=== PATIENT | male | born 1980 ===

== ENCOUNTER 2016-11-29 10:54 | Emergency (ER) | payer OTHER ==
[2016-11-29 11:02] VITALS: BP 139/80; TEMP 98
[2016-11-29 11:03] VITALS: BMI 22.4
[2016-11-29 11:31] VITALS: PULSE 100; RESP 20; O2SAT 98
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
== END 2016-11-29 13:27 | disposition home or self-care (01) ==
LOC: H.ER 10:54
DX: S93.402A Sprain of unspecified ligament of left ankle, initial encounter (principal); W22.8XXA Striking against or struck by other objects, initial encounter; Y92.89 Other specified places as the place of occurrence of the external cause

== ENCOUNTER 2017-03-26 10:46 | Emergency (ER) | payer OTHER ==
[2017-03-26 10:46] VITALS: BMI 22.4
[2017-03-26 10:57] VITALS: BP 106/59; TEMP 98.4
[2017-03-26 11:28] VITALS: PULSE 86; RESP 18; O2SAT 100
--- NOTE | 2017-03-26 12:28 | ED PDOC ---
Upper Extremity Pain/Injury Time Seen by Provider: 03/26/17 12:05 Chief Complaint (Nursing): Upper Extremity Problem/Injury Chief Complaint (Provider): Neck Pain History Per: Patient History/Exam Limitations: no limitations Onset/Duration Of Symptoms: Days (x 1 week) Current Symptoms Are (Timing): Still Present Exacerbating Factor(s): Movement Additional Complaint(s): Antonio is a 37 y/o male presenting to the ED complaining of neck pain for the past week. Denies any associated injury, heavy lifting, or trauma. Took Tylenol with no relief, last dose was last week. Pain worsens with movement. Patient denies having similar pain in the past. Denies headache, changes in vision, arm pain, chest pain, and shortness of breath. PMD: None Past Medical History Reviewed: Historical Data, Nursing Documentation, Vital Signs Vital Signs: Last Vital Signs Temp 98.4 F 03/26/17 11:26 Pulse 86 03/26/17 11:26 Resp 18 03/26/17 11:26 BP 106/59 L 03/26/17 11:26 Pulse Ox 100 03/26/17 11:26 - Medical History PMH: Back Problems - Surgical History Surgical History: No Surg Hx - Family History Family History: States: No Known Family Hx - Living Arrangements Living Arrangements: With Family - Social History Current smoker - smoking cessation education provided: No Alcohol: None Drugs: Denies - Home Medications Home Medications: Ambulatory Orders Medication Instructions Recorded Chlorzoxazone [Lorzone] 750 mg PO BID #10 tablet 08/27/16 Ibuprofen [Motrin Tab] 800 mg PO Q6H PRN #20 tab 08/27/16 Chlorzoxazone [Lorzone] 750 mg PO TID PRN #15 tablet 08/30/16 Cyclobenzaprine [Cyclobenzaprine 10 mg PO TID PRN #20 tab 11/29/16 HCl] Ibuprofen [Motrin Tab] 800 mg PO Q8 PRN #20 tab 11/29/16 Cyclobenzaprine [Cyclobenzaprine 10 mg PO TID PRN #20 tab 03/26/17 HCl] Naproxen [Naprosyn] 500 mg PO BID #20 tab 03/26/17 - Allergies Allergies/Adverse Reactions: Allergies Allergy/AdvReac Type Severity Reaction Status Date / Time No Known Allergies Allergy Verified 08/27/16 20:22 Review of Systems ROS Statement: Except As Marked, All Systems Reviewed And Found Negative Constitutional: Negative for: Fever Eyes: Negative for: Vision Change Cardiovascular: Negative for: Chest Pain Respiratory: Negative for: Shortness of Breath Musculoskeletal: Positive for: Neck Pain (x 1 week, denies trauma). Negative for: Arm Pain Neurological: Negative for: Headache Physical Exam - Reviewed Nursing Documentation Reviewed: Yes Vital Signs Reviewed: Yes - Physical Exam Appears: Positive for: Well, Non-toxic, No Acute Distress Head Exam: Positive for: ATRAUMATIC, NORMAL INSPECTION, NORMOCEPHALIC Skin: Positive for: Normal Color, Warm, Dry. Negative for: Rash Eye Exam: Positive for: Normal appearance Neck: Positive for: Pain On Movement Of Neck (Mild tenderness along the midline c-spine with no step off, Mild tenderness to the bilateral paraspinal regions) Cardiovascular/Chest: Positive for: Regular Rate, Rhythm Respiratory: Positive for: Normal Breath Sounds Extremity: Positive for: Normal ROM. Negative for: Deformity Neurologic/Psych: Positive for: Alert, Oriented. Negative for: Motor/Sensory Deficits - ECG O2 Sat by Pulse Oximetry: 100 (RA) Pulse Ox Interpretation: Normal - Other Rad cervical spine x-ray X-Ray: Interpreted by Me, Viewed By Me X-Ray Interpretation: no fx, no dis, muscle spasm Medical Decision Making Medical Decision Makin37 year old with neck pain Time: 12:23 Initial Plan: --Ordered X-Ray Cervical Spine --Patient given 600 mg Motrin PO Patient is aware of x-ray results, all questions answered. Patient was better after meds given. Prescriptions given for Naprosyn and Flexeril. Patient was referred to orthopedist manager decision support. Scribe Attestation: Documented by Mely Blood, acting as a scribe for Bina Dumont PA-C Provider Scribe Attestation: All medical record entries made by the Scribe were at my direction and personally dictated by me. I have reviewed the chart and agree that the record accurately reflects my personal performance of the history, physical exam, medical decision making, and the department course for this patient. I have also personally directed, reviewed, and agree with the discharge instructions and disposition. Disposition - Clinical Impression Clinical Impression: Cervical sprain - Patient ED Disposition Is Patient to be Admitted: No Counseled Patient/Family Regarding: Studies Performed, Diagnosis, Need For Followup, Rx Given - Disposition Referrals: Sun Graham MD [Staff Provider] - Disposition: Routine/Home Disposition Time: 13:27 Condition: IMPROVED Additional Instructions: Take prescription medications as directed as needed for pain. Rest and avoid heavy lifting. Follow-up with orthopedist for any persistent symptoms. Prescriptions: Cyclobenzaprine [Cyclobenzaprine HCl] 10 mg PO TID PRN #20 tab PRN Reason: Muscle Spasm Naproxen [Naprosyn] 500 mg PO BID #20 tab Instructions: Cervical Strain (DC), Muscle Spasm (ED) Forms: [facility] ([place])
--- NOTE | 2017-03-26 13:21 | RAD ---
PROCEDURE: Cervical Spine Radiographs. HISTORY: Pain. COMPARISON: None. FINDINGS: BONES: There is straightening of the cervical spine with loss of normal cervical lordosis. Vertebral alignment is normal. Vertebral height is maintained. There is no acute fracture or spondylolisthesis. The craniocervical junction is normal. The atlantoaxial joint is normal. DISC SPACES: Normal. SOFT TISSUES: Normal. No prevertebral soft tissue swelling. OTHER FINDINGS: None. IMPRESSION: No acute fracture or spondylolisthesis. No significant degenerative disc disease. Straightening of the cervical spine may be positional or related to muscle spasm.
== END 2017-03-26 13:34 | disposition home or self-care (01) ==
LOC: H.ER 10:46
DX: M54.2 Cervicalgia (principal)

== ENCOUNTER 2017-06-19 01:05 | Emergency (ER) | payer OTHER ==
[2017-06-19 01:05] VITALS: BMI 22.4
[2017-06-19 01:15] VITALS: BP 122/72; PULSE 97; RESP 16; TEMP 98.7; O2SAT 98
--- NOTE | 2017-06-19 01:35 | ED PDOC ---
HPI: Hypertension/Hypotension Time Seen by Provider: 06/19/17 01:28 Chief Complaint (Nursing): Lower Extremity Problem/Injury Chief Complaint (Provider): palpitations History Per: Patient History/Exam Limitations: no limitations Onset/Duration Of Symptoms: Hrs (4) Current Symptoms Are (Timing): Still Present Quality Of Symptoms: Rapid Heart Rate Additional History Per: Patient Additional Complaint(s): 37 y/o male presents with palpitations x 4 hours. Associated "shaking" of whole body. Denies headache, dizziness, extremity numbness/weakness, chest pain , shortness of breath, abdominal pain, leg pain/swelling, recent travel, drug/ alcohol use. Past Medical History Reviewed: Historical Data, Nursing Documentation, Vital Signs Vital Signs: Last Vital Signs Temp 98.7 F 06/19/17 01:14 Pulse 97 H 06/19/17 01:14 Resp 16 06/19/17 01:14 BP 122/72 06/19/17 01:14 Pulse Ox 98 06/19/17 01:14 - Medical History PMH: Back Problems - Surgical History Surgical History: No Surg Hx - Family History Family History: States: Unknown Family Hx - Social History Current smoker - smoking cessation education provided: No Alcohol: None Drugs: Denies - Home Medications Home Medications: Ambulatory Orders Medication Instructions Recorded Chlorzoxazone [Lorzone] 750 mg PO BID #10 tablet 08/27/16 Ibuprofen [Motrin Tab] 800 mg PO Q6H PRN #20 tab 08/27/16 Chlorzoxazone [Lorzone] 750 mg PO TID PRN #15 tablet 08/30/16 Cyclobenzaprine [Cyclobenzaprine 10 mg PO TID PRN #20 tab 11/29/16 HCl] Ibuprofen [Motrin Tab] 800 mg PO Q8 PRN #20 tab 11/29/16 Cyclobenzaprine [Cyclobenzaprine 10 mg PO TID PRN #20 tab 03/26/17 HCl] Naproxen [Naprosyn] 500 mg PO BID #20 tab 03/26/17 - Allergies Allergies/Adverse Reactions: Allergies Allergy/AdvReac Type Severity Reaction Status Date / Time No Known Allergies Allergy Verified 08/27/16 20:22 Review of Systems ROS Statement: Except As Marked, All Systems Reviewed And Found Negative Cardiovascular: Positive for: Palpitations Physical Exam - Reviewed Nursing Documentation Reviewed: Yes Vital Signs Reviewed: Yes - Physical Exam Appears: Positive for: Well, Non-toxic, No Acute Distress Head Exam: Positive for: ATRAUMATIC, NORMAL INSPECTION, NORMOCEPHALIC Skin: Positive for: Normal Color Eye Exam: Positive for: Normal appearance ENT: Positive for: Normal ENT Inspection Cardiovascular/Chest: Positive for: Regular Rate, Rhythm Respiratory: Positive for: Normal Breath Sounds Gastrointestinal/Abdominal: Positive for: Normal Exam Back: Positive for: Normal Inspection Extremity: Positive for: Normal ROM Neurologic/Psych: Positive for: Alert, Oriented - Laboratory Results Result Diagrams: 06/19/17 01:40 06/19/17 01:40 - ECG ECG: Positive for: Viewed By Me (reviewed by ED attending) ECG Rhythm: Positive for: Sinus Rhythm O2 Sat by Pulse Oximetry: 98 - Progress ED Course And Treament: labs, ekg Patient educated on findings, discharged with instructions to follow up PMD 2-3 days. Return precautions given. Disposition - Clinical Impression Clinical Impression: Palpitations - Patient ED Disposition Is Patient to be Admitted: No Counseled Patient/Family Regarding: Studies Performed, Diagnosis, Need For Followup - Disposition Referrals: Douglas Cohen MD [Primary Care Provider] - Disposition: Routine/Home Disposition Time: 03:16 Condition: IMPROVED Instructions: Palpitations (ED) Forms: [facility] ([place]ian)
[2017-06-19 01:51] LABS: BASO # 0.1 K/uL (0.0-0.2); BASO % 1.1 % (0.0-2.0); EOS # 0.4 K/uL (0.0-0.7); EOS % 5.1 % (0.0-4.0); HEMATOCRIT 45.5 % (35.0-51.0); LYMPH # 1.6 K/uL (1.0-4.3); LYMPH % 21.5 % (20.0-40.0); MEAN CELL VOLUME 88.1 fl (80.0-94.0); MEAN CORPUSCULAR HEMOGLOBIN 28.7 pg (27.0-31.0); MEAN CORPUSCULAR HGB CONC 32.5 g/dL (33.0-37.0); MEAN PLATELET VOLUME 7.2 fl (7.2-11.7); MONO # 0.6 K/uL (0.0-0.8); MONO % 8.4 % (0.0-10.0); NEUT # 4.8 K/uL (1.8-7.0); NEUT % 63.9 % (50.0-75.0); NRBC % 0.1 % (0.0-0.0); RED CELL DISTRIBUTION WIDTH 13.3 % (11.5-14.5); WHITE BLOOD COUNT 7.6 K/uL (4.8-10.8)
[2017-06-19 02:01] LABS: ALB/GLOB RATIO 1.5 (1.0-2.1); ALKALINE PHOSPHATASE 77 U/L (38-126); ALT/SGPT 32 U/L (21-72); AST/SGOT 20 U/L (17-59); BILIRUBIN,TOTAL 0.5 mg/dl (0.2-1.3); BLOOD UREA NITROGEN 13 mg/dl (9-20); CALCIUM 9.6 mg/dL (8.4-10.2); CARBON DIOXIDE 26 mmol/L (22-30); CHLORIDE 104 mmol/L (98-107); GFR AFRICAN-AMERICAN > 60; GLUCOSE,RANDOM 106 mg/dL (75-110); POTASSIUM 3.7 MMOL/L (3.6-5.0); SODIUM 140 mmol/l (132-148); TOTAL PROTEIN 7.2 G/DL (6.3-8.2)
--- NOTE | 2017-06-20 11:27 | CARD ---
APPROVED REPORT EKG Measurement Heart [id number] <Conclusion> Normal sinus rhythm Normal ECG
== END 2017-06-19 03:34 | disposition home or self-care (01) ==
LOC: H.ER 01:05
DX: R00.2 Palpitations (principal); I10 Essential (primary) hypertension

== ENCOUNTER 2017-08-16 10:38 | Emergency (ER) | payer OTHER ==
[2017-08-16 10:38] VITALS: BMI 22.4
[2017-08-16] MEDS ORDERED: Sodium Chloride 0.9% 1,000 ML IV STA (11:39)
[2017-08-16] MEDS ORDERED: Iohexol 240 (50 ml) PO ONE (11:39)
--- NOTE | 2017-08-16 11:42 | ED PDOC ---
HPI: Abdomen Time Seen by Provider: 08/16/17 11:29 Chief Complaint (Nursing): Abdominal Pain Chief Complaint (Provider): Abdominal pain History Per: Patient History/Exam Limitations: no limitations Onset/Duration Of Symptoms: Days (x1) Current Symptoms Are (Timing): Still Present Context: Food (possibly) Location Of Pain/Discomfort: Diffuse Quality Of Discomfort: "Pain" Associated Symptoms: Nausea, Vomiting (x3 episodes), Other (generalized weakness ). denies: Urinary Symptoms Last Bowel Movement: Yesterday Additional Complaint(s): Antonio Valles is a 37 year old male, with a past medical history of back problems , who presents to the emergency department complaining of abdominal pain associated with nausea and x3 episodes of vomiting onset since yesterday. Patient also reports back pain and feeling weak with ambulation. Patient states he possibly ate something that might have caused it. Last bowel movement was yesterday. He denies any diarrhea, chest pain, shortness of breath, dysuria, dizziness, cough, congestion or runny nose. No further medical complaints. PMD: None provided. Past Medical History Reviewed: Historical Data, Nursing Documentation, Vital Signs Vital Signs: Last Vital Signs Temp 97 F L 08/16/17 11:02 Pulse 65 08/16/17 13:00 Resp 14 08/16/17 13:00 BP 112/75 08/16/17 13:00 Pulse Ox 100 08/16/17 13:00 - Medical History PMH: Back Problems - Surgical History Surgical History: No Surg Hx - Family History Family History: States: Unknown Family Hx - Home Medications Home Medications: Ambulatory Orders Medication Instructions Recorded Chlorzoxazone [Lorzone] 750 mg PO BID #10 tablet 08/27/16 Ibuprofen [Motrin Tab] 800 mg PO Q6H PRN #20 tab 08/27/16 Chlorzoxazone [Lorzone] 750 mg PO TID PRN #15 tablet 08/30/16 Cyclobenzaprine [Cyclobenzaprine 10 mg PO TID PRN #20 tab 11/29/16 HCl] Ibuprofen [Motrin Tab] 800 mg PO Q8 PRN #20 tab 11/29/16 Cyclobenzaprine [Cyclobenzaprine 10 mg PO TID PRN #20 tab 03/26/17 HCl] Naproxen [Naprosyn] 500 mg PO BID #20 tab 03/26/17 Magnesium Citrate [[facility] 150 ml PO DAILY PRN 3 Days bottle 08/16/17 Pharmacy Magnesium Citrate] - Allergies Allergies/Adverse Reactions: Allergies Allergy/AdvReac Type Severity Reaction Status Date / Time No Known Allergies Allergy Verified 08/27/16 20:22 Review of Systems ROS Statement: Except As Marked, All Systems Reviewed And Found Negative Constitutional: Positive for: Weakness (generalized ) ENT: Negative for: Nose Discharge, Nose Congestion Cardiovascular: Negative for: Chest Pain Respiratory: Negative for: Cough, Shortness of Breath Gastrointestinal: Positive for: Nausea, Vomiting (x3 episodes ), Abdominal Pain. Negative for: Diarrhea Genitourinary Male: Negative for: Dysuria Musculoskeletal: Positive for: Back Pain Neurological: Negative for: Dizziness Physical Exam - Reviewed Nursing Documentation Reviewed: Yes Vital Signs Reviewed: Yes - Physical Exam Appears: Positive for: Non-toxic Head Exam: Positive for: ATRAUMATIC, NORMAL INSPECTION, NORMOCEPHALIC Skin: Positive for: Normal Color, Warm, Dry Eye Exam: Positive for: Normal appearance, EOMI, PERRL ENT: Positive for: Normal ENT Inspection Neck: Positive for: Painless ROM, Supple Cardiovascular/Chest: Positive for: Regular Rate, Rhythm. Negative for: Murmur Respiratory: Positive for: Normal Breath Sounds (clear b/l). Negative for: Respiratory Distress Gastrointestinal/Abdominal: Positive for: Soft, Tenderness (diffuse). Negative for: Guarding, Rebound Back: Positive for: R CVA Tenderness. Negative for: L CVA Tenderness Extremity: Positive for: Normal ROM. Negative for: Tenderness, Deformity, Swelling Neurologic/Psych: Positive for: Alert, Oriented - Laboratory Results Result Diagrams: 08/16/17 11:55 08/16/17 11:55 Interpretation Of Abn Labs: 3.5 k - ECG O2 Sat by Pulse Oximetry: 98 (RA) Pulse Ox Interpretation: Normal - CT Scan/US ct Other Rad Studies (CT/US): Read By Radiologist Other Rad Interpretation: no acute - Progress ED Course And Treament: 1657: Stable. AAOx3. Pain free. Tolerated PO. Fu with pcp. Medical Decision Making Medical Decision Making: Initial Impression: Initial Plan: --Abd Pelvis PO & IV Contrast [CT] --CMP --Lipase --Urine dip --CBC w/ differential --Omnipaque 240 50 ml PO --Toradol 15 mg IVP --Sodium Chloride 1,000 ml IV 1,000 mls/hr --Zofran Inj 4 mg IV --Reevaluation Scribe Attestation: Documented by Casimiro Enriquez, acting as a scribe for Marc Ely MD Provider Scribe Attestation: All medical record entries made by the Scribe were at my direction and personally dictated by me. I have reviewed the chart and agree that the record accurately reflects my personal performance of the history, physical exam, medical decision making, and the department course for this patient. I have also personally directed, reviewed, and agree with the discharge instructions and disposition. Disposition - Clinical Impression Clinical Impression: Abdominal pain, Constipation, Hypokalemia - Patient ED Disposition Is Patient to be Admitted: No Counseled Patient/Family Regarding: Studies Performed, Diagnosis, Need For Followup, Rx Given - Disposition Referrals: [facility] [Outside] - 08/17/17 Disposition: Routine/Home Disposition Time: 16:59 Condition: STABLE Additional Instructions: Return if not better in 3 days. Prescriptions: Magnesium Citrate [[facility] Magnesium Citrate] 150 ml PO DAILY PRN 3 Days bottle PRN Reason: Constipation Instructions: Acute Abdomen (Belly Pain), Constipation in Adults, Hypokalemia ( DC), Acute Abdomen (Belly Pain), Adult (DC) Print Language: PRYDEINIG
[2017-08-16] MEDS ORDERED: Iohexol 240 (50 ml) ONE (11:56)
[2017-08-16 12:09] LABS: BASO % 0.3 % (0.0-2.0); EOS % 0.1 % (0.0-4.0); LYMPH # 0.6 K/uL (1.0-4.3); LYMPH % 9.1 % (20.0-40.0); MEAN CORPUSCULAR HEMOGLOBIN 29.2 pg (27.0-31.0); MEAN PLATELET VOLUME 7.5 fl (7.2-11.7); MONO # 0.7 K/uL (0.0-0.8); MONO % 10.8 % (0.0-10.0); NEUT # 5.4 K/uL (1.8-7.0); NEUT % 79.7 % (50.0-75.0); PLATELET COUNT 198 K/uL (130-400); RBC 5.12 Mil/uL (4.40-5.90); RED CELL DISTRIBUTION WIDTH 12.6 % (11.5-14.5); WHITE BLOOD COUNT 6.7 K/uL (4.8-10.8)
[2017-08-16 12:22] LABS: ALB/GLOB RATIO 1.4 (1.0-2.1); ALBUMIN 4.4 g/dL (3.5-5.0); ALT/SGPT 29 U/L (21-72); AST/SGOT 25 U/L (17-59); BLOOD UREA NITROGEN 14 mg/dl (9-20); CALCIUM 8.7 mg/dL (8.4-10.2); GFR AFRICAN-AMERICAN > 60; GFR NON-AFRICAN AMERICAN > 60; LIPASE 25 U/L (23-300)
[2017-08-16 13:18] VITALS: RESP 14
[2017-08-16 14:28] LABS: LYMPHOCYTE 10 % (20-50); MONOCYTE 11 % (0-10); NEUTROPHIL 79 % (42-75); PLATELET ESTIMATE NORMAL (NORMAL); TOTAL CELLS COUNTED 100
[2017-08-16] MEDS ORDERED: Iohexol 300 100 ML IJ ONE (16:10)
[2017-08-16] MEDS ORDERED: Sodium Chloride 0.9% 50 ML IV ONE (16:10)
--- NOTE | 2017-08-16 16:54 | CT ---
PROCEDURE: CT Abdomen and Pelvis with contrast HISTORY: Abdominal pain, vomiting COMPARISON: None. TECHNIQUE: Contrast dose: 95 cc Omnipaque 300 Radiation dose: Total exam DLP = 31.28 mGy-cm. This CT exam was performed using one or more of the following dose reduction techniques: Automated exposure control, adjustment of the mA and/or kV according to patient size, and/or use of iterative reconstruction technique. FINDINGS: LOWER THORAX: Unremarkable. LIVER: Unremarkable. No gross lesion or ductal dilatation. GALLBLADDER AND BILE DUCTS: Unremarkable. PANCREAS: Unremarkable. No gross lesion or ductal dilatation. SPLEEN: Unremarkable. ADRENALS: Unremarkable. No mass. KIDNEYS AND URETERS: Right kidney: 5 mm midpole calculus, nonobstructing. Left kidney: Unremarkable. VASCULATURE: Unremarkable. No aortic aneurysm. BOWEL: Constipation without fecal impaction or obstruction. APPENDIX: Normal appendix. PERITONEUM: Unremarkable. No free fluid. No free air. LYMPH NODES: Unremarkable. No enlarged lymph nodes. BLADDER: Unremarkable. REPRODUCTIVE: Unremarkable. BONES: No acute fracture. OTHER FINDINGS: None. IMPRESSION: Nonobstructing right renal calculus. No additional significant/acute abnormalities. Additional benign and/or incidental findings described above.
[2017-08-16 16:58] VITALS: O2SAT 98
[2017-08-16] MEDS ORDERED: Potassium Chloride 20 mEq ER Tab PO STA (16:58)
[2017-08-16 17:16] VITALS: BP 122/65; PULSE 75; TEMP 97.9
== END 2017-08-16 17:17 | disposition home or self-care (01) ==
LOC: H.ER 10:38
DX: K59.00 Constipation, unspecified (principal); E87.6 Hypokalemia
CPT/HCPCS: 74177; 80053; 83690; 85025; 96374; 99284; J1885; J2405; J7040; Q9966; Q9967

== ENCOUNTER 2017-12-21 17:47 | Emergency (ER) | payer OTHER ==
[2017-12-21 17:47] VITALS: BMI 22.4
[2017-12-21 17:54] VITALS: BP 115/71; PULSE 80; RESP 19; TEMP 98.2; O2SAT 96
--- NOTE | 2017-12-21 17:58 | ED PDOC ---
HPI: Skin/Bite Injury Time Seen by Provider: 12/21/17 17:57 Chief Complaint (Nursing): Abnormal Skin Integrity Chief Complaint (Provider): rash History Per: Patient Additional Complaint(s): 37 y/o male presents with itchy, red rash to left arm and left side of neck x 1 month. He states OTC cream has not helped. He does not know the name of the cream he has been using. No fever or chills. No drainage from wound. PMD: none Past Medical History Reviewed: Historical Data, Nursing Documentation, Vital Signs Vital Signs: Last Vital Signs Temp 98.2 F 12/21/17 17:53 Pulse 80 12/21/17 17:53 Resp 19 12/21/17 17:53 BP 115/71 12/21/17 17:53 Pulse Ox 96 12/21/17 18:13 - Medical History PMH: Back Problems - Family History Family History: States: No Known Family Hx - Living Arrangements Living Arrangements: With Family - Social History Current smoker - smoking cessation education provided: No Alcohol: None Drugs: Denies - Home Medications Home Medications: Ambulatory Orders Medication Instructions Recorded Chlorzoxazone [Lorzone] 750 mg PO BID #10 tablet 08/27/16 Ibuprofen [Motrin Tab] 800 mg PO Q6H PRN #20 tab 08/27/16 Chlorzoxazone [Lorzone] 750 mg PO TID PRN #15 tablet 08/30/16 Cyclobenzaprine [Cyclobenzaprine 10 mg PO TID PRN #20 tab 11/29/16 HCl] Ibuprofen [Motrin Tab] 800 mg PO Q8 PRN #20 tab 11/29/16 Cyclobenzaprine [Cyclobenzaprine 10 mg PO TID PRN #20 tab 03/26/17 HCl] Naproxen [Naprosyn] 500 mg PO BID #20 tab 03/26/17 Magnesium Citrate [Good Neighbor 150 ml PO DAILY PRN 3 Days bottle 08/16/17 Pharmacy Magnesium Citrate] Hydrocortisone [Hydrocortisone 1 applic TOP TID #1 tube 12/21/17 2.5% Cream] - Allergies Allergies/Adverse Reactions: Allergies Allergy/AdvReac Type Severity Reaction Status Date / Time No Known Allergies Allergy Verified 08/27/16 20:22 Review of Systems ROS Statement: Except As Marked, All Systems Reviewed And Found Negative Constitutional: Negative for: Fever Skin: Positive for: Rash Physical Exam - Reviewed Nursing Documentation Reviewed: Yes Vital Signs Reviewed: Yes - Physical Exam Appears: Positive for: Well, Non-toxic, No Acute Distress Skin: Positive for: Normal Color, Rash (raised, localized, erythematous patch noted to mid forearm and left side of neck, appearance consistent with contact dermatitis, no pustular or vesicular lesions. no cellulitis) Eye Exam: Positive for: Normal appearance Cardiovascular/Chest: Positive for: Regular Rate, Rhythm Respiratory: Positive for: Normal Breath Sounds Extremity: Positive for: Normal ROM Neurologic/Psych: Positive for: Alert, Oriented - ECG O2 Sat by Pulse Oximetry: 96 Pulse Ox Interpretation: Normal Medical Decision Making Medical Decision Making: Impression: contact dermatitis Plan: Rx hydrocortisone cream OTC benadryl prn PMD or dermatology follow up Disposition - Clinical Impression Clinical Impression: Contact dermatitis - Patient ED Disposition Is Patient to be Admitted: No Counseled Patient/Family Regarding: Studies Performed, Diagnosis, Need For Followup, Rx Given - Disposition Referrals: [facility] [Outside] Disposition: Routine/Home Disposition Time: 18:06 Condition: STABLE Additional Instructions: Apply cream as directed. Over the counter benadryl for itching. 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 Prescriptions: Hydrocortisone [Hydrocortisone 2.5% Cream] 1 applic TOP TID #1 tube Instructions: Contact Dermatitis (DC) Forms: [employer] (Vietnamese)
== END 2017-12-21 19:45 | disposition home or self-care (01) ==
LOC: H.ER 17:47
DX: L25.9 Unspecified contact dermatitis, unspecified cause (principal)

== ENCOUNTER 2018-05-27 09:53 | Emergency (ER) | payer OTHER ==
[2018-05-27 09:53] VITALS: BMI 22.4
--- NOTE | 2018-05-27 11:51 | ED PDOC ---
HPI: Back Time Seen by Provider: 05/27/18 10:37 Chief Complaint (Nursing): Back Pain History Per: Patient History/Exam Limitations: no limitations Onset/Duration Of Symptoms: Days (2 months) Current Symptoms Are (Timing): Intermittent Episodes Quality Of Discomfort: Aching Severity: Mild Previous Symptoms: Back Pain Additional Complaint(s): Pt. is a 38 yr. old male with 2-3 month history of right sided mid to lower back pain. Pain is intermittent, described as achy, made worse by certain positional movements. Pt. denies fevers, vomiting, or urinary symptoms. Pt. denies any direct injury or trauma, but is often lifting small things and "cleaning his apt". Past Medical History Reviewed: Historical Data, Nursing Documentation, Vital Signs Vital Signs: Last Vital Signs Temp 97.9 F 05/27/18 10:04 Pulse 80 05/27/18 10:04 Resp 16 05/27/18 10:04 BP 121/69 05/27/18 10:04 Pulse Ox 99 05/27/18 10:04 - Medical History PMH: Back Problems Denies: Asthma, Bronchitis - Family History Family History: States: Unknown Family Hx - Home Medications Home Medications: Ambulatory Orders Medication Instructions Recorded Chlorzoxazone [Lorzone] 750 mg PO BID #10 tablet 08/27/16 Ibuprofen [Motrin Tab] 800 mg PO Q6H PRN #20 tab 08/27/16 Chlorzoxazone [Lorzone] 750 mg PO TID PRN #15 tablet 08/30/16 Cyclobenzaprine [Cyclobenzaprine 10 mg PO TID PRN #20 tab 11/29/16 HCl] Ibuprofen [Motrin Tab] 800 mg PO Q8 PRN #20 tab 11/29/16 Cyclobenzaprine [Cyclobenzaprine 10 mg PO TID PRN #20 tab 03/26/17 HCl] Naproxen [Naprosyn] 500 mg PO BID #20 tab 03/26/17 Magnesium Citrate [Good Neighbor 150 ml PO DAILY PRN 3 Days bottle 08/16/17 Pharmacy Magnesium Citrate] Hydrocortisone [Hydrocortisone 1 applic TOP TID #1 tube 12/21/17 2.5% Cream] Ibuprofen [Motrin Tab] 600 mg PO Q8 5 Days #15 tab 05/27/18 - Allergies Allergies/Adverse Reactions: Allergies Allergy/AdvReac Type Severity Reaction Status Date / Time No Known Allergies Allergy Verified 08/27/16 20:22 Review of Systems Constitutional: Negative for: Fever, Chills Cardiovascular: Negative for: Chest Pain Respiratory: Negative for: Cough Genitourinary Male: Negative for: Dysuria Musculoskeletal: Positive for: Back Pain Skin: Negative for: Rash Neurological: Negative for: Weakness, Numbness Physical Exam - Reviewed Nursing Documentation Reviewed: Yes Vital Signs Reviewed: Yes - Physical Exam Appears: Positive for: Well, No Acute Distress Head Exam: Positive for: ATRAUMATIC, NORMAL INSPECTION Skin: Positive for: Normal Color. Negative for: Rash Back: Positive for: Other (Mild right parathoracic and paralumbar tenderness, no midline tenderness. ) Neurologic/Psych: Positive for: Other (5/5 strength to b/l LE.). Negative for: Motor/Sensory Deficits - ECG O2 Sat by Pulse Oximetry: 99 Medical Decision Making Medical Decision Making: Motrin po given Urine dip ordered. Urine dip neg. Pt. well appearing, ambulating with steady gait, no neuro deficits. Disposition - Clinical Impression Clinical Impression: Back strain, Chronic back pain - Patient ED Disposition Is Patient to be Admitted: No Counseled Patient/Family Regarding: Studies Performed, Diagnosis, Rx Given - Disposition Disposition: Routine/Home Disposition Time: 11:55 Condition: IMPROVED Prescriptions: Ibuprofen [Motrin Tab] 600 mg PO Q8 5 Days #15 tab Instructions: Muscle Strain, Low Back Pain in Adults Print Language: THAI
[2018-05-27 12:33] VITALS: BP 119/70; PULSE 86; RESP 18; TEMP 98.8; O2SAT 97
== END 2018-05-27 12:30 | disposition home or self-care (01) ==
LOC: H.ER 09:53
DX: S39.012A Strain of muscle, fascia and tendon of lower back, initial encounter (principal); G89.29 Other chronic pain